=== PATIENT | male | born 1955 | race Caucasian/White ===

== ENCOUNTER 2017-02-15 16:54 | Emergency (ER) | payer OTHER ==
[2017-02-15] MEDS ORDERED: Adacel (T-DAP) 0.5 ML VIAL ONE (17:13)
[2017-02-15] MEDS ORDERED: Sodium Chloride 0.9% 250 ML 250 ML ONE (17:16)
--- NOTE | 2017-02-15 18:19 | RAD ---
EXAM: LEFT THUMB THREE VIEWS 02/15/17 HISTORY: Injury. COMPARISON: None. FINDINGS: Soft tissue injury with overlying bandage material is noted at the distal aspect of the left thumb. No obvious radiopaque foreign body. No fracture. No cortical irregularity or periosteal reaction. IMPRESSION: Soft tissue injury without evidence of fracture or radiopaque foreign body. POS: [facility]
== END 2017-02-15 19:50 | disposition home or self-care (01) ==
LOC: NAV ERS 16:54
DX: S61.002A Unspecified open wound of left thumb without damage to nail, initial encounter (principal); Z23 Encounter for immunization; Z79.899 Other long term (current) drug therapy; E11.9 Type 2 diabetes mellitus without complications; W33.11XA Accidental malfunction of shotgun, initial encounter
CPT/HCPCS: 90471; 90715; 96365; 96366; J3370; J7050